=== PATIENT | male | born 1960 | race Caucasian/White ===

== ENCOUNTER → 2022-12-26 12:40 | Outpatient (BNVA) | payer BC, SELFPAY | PROVIDERS: PCP Internal Medicine; Visit Provider Internal Medicine Cardiovascular Disease ==

== ENCOUNTER → 2023-01-02 08:26 | Outpatient (REF) | payer BC, SELFPAY ==
--- NOTE | 2023-01-02 08:41 | CA_ITS ---
Transthoracic Echocardiogram Patient (Last, First, Middle): Xavier Clements, Gender: Male Date of : 1960 Age: 62 Procedure Date: 01/02/2023 Procedure Type: Transthoracic Echocardiogram Location: OP Height: 175.26 cm Weight: 122.47 kg BSA: 2.35 m2 Heart Rate: bpm BP: 130 / 80 mmHg Tube Room Supervisor: TO Referring MD: Zhou Boothe MD On Call: Zhou Boothe MD Symptoms: Z01.810 - Encounter for preprocedural cardiovascular examination Study Quality: Technically Difficult/Contrast ECG Rhythm: Sinus Conclusions: - 1. Technically limited study despite use of contrast agent 2. Normal LV systolic function with LVEF of 60 65% with impaired relaxation filling pattern 3. Limited visualization cardiac valve with normal cardiac valvular Doppler Findings Procedure Information Contrast agent, definity, is being given per protocol without apparent complications. Left Ventricle Normal left ventricular size, thickness, and systolic function. The visually estimated ejection fraction is between 60-65%. Spectral Doppler is indicative of an impaired relaxation filling pattern. Right Ventricle The right ventricle was not well visualized. Atria The left atrium was not well visualized. Interatrial shunt cannot be excluded. The right atrium was not well visualized. Aortic Valve The aortic valve structure and function is likely normal. There is no aortic valve stenosis. There is no aortic valve regurgitation. Mitral Valve The mitral valve was not well visualized. There is trace mitral valve regurgitation. There is no mitral valve stenosis. Pulmonic Valve The pulmonic valve was not well visualized. Tricuspid Valve The tricuspid valve was not well visualized. Tricuspid regurgitation envelope is inadequate for calculation of right ventricular systolic pressure. Great Vessels All visible segments of the aorta are normal in size. The pulmonary artery was not well visualized. Venous The inferior vena cava is normal in size. Pericardium/Pleural The pericardium was not well visualized. Prior Study Comparison No prior study available for comparison. Measurements 2D Linear Measurements IVSd: 1.26 0.6-0.9/0.6-1.0 cm LVIDd: 3.94 3.9-5.3/4.2-5.9 cm LVIDd Index: 1.68 2.4-3.2/2.2-3.1 cm/m2 LVIDs: 2.80 2.0-3.6 cm LVPWd: 1.03 0.7-1.1 cm LA Diam: 3.40 2.7-3.8/3.0-4.0 cm LAIDs Index: 1.45 1.5-2.3 cm/m2 LV Mass: 187.87 67-162/88-224 g LV Mass Index: 79.94 43-95/49-115 g/m2 LVOT Diam: 2.20 3.0+(-)1.3 cm 2D Systolic Function EF 4C: 55.60 >55% Mitral Valve MV Pk E: 0.57 MV PK A: 0.90 MV Decel Time: 182.00 E/A: 0.60 E'Lateral: 7.07 E'Medial: 6.31 E/E' Med: 9.00 E/E' Lat: 8.00 PHT: 53.00 MVA PHT: 4.15 Decel [place]: 3.10 Aortic Valve AoV Pk Nestor: 1.09 AoV Mn Nestor: 0.75 AoV VTI: 0.19 AoV Pk Grad: 5.00 Aov Mn Grad: 3.00 CRISTOFER Cont.VTI: 4.10 LVOT LVOT Pk Nestor: 1.22 LVOT Mn Nestor: 0.76 LVOT VTI: 0.20 LVOT Pk Grad: 6.00 LVOT Mn Grad: 3.00 LVOT Diam: 2.20 LVOT Area: 3.80 Diastolic Function MV Pk E: 0.57 MV Pk A: 0.90 E/A: 0.60 E'Medial: 6.31 E/E' Med: 9.00 E' Laterial: 7.07 E/E' Lat: 8.00 Right Ventricle TAPSE (mm): 25.90 TVS' Nestor: 12.50 Tricuspid Valve TR Pk Nestor: 1.81 TR Pk Grad: 13.00 Great Vessels Aorta Sinus of Valsalva: 3.47 2.0-3.[address] [place]: 2.74 1.7-3.4 cm Ao Asc: 3.20 2.1-3.4 cm Updated in Other Vendor System with Status of Final Zhou Boothe MD electronically signed on 01/02/2023 12:57:15 PM with status of Final
== END ==
LOC: HO.CARD 08:26
PROVIDERS: PCP Internal Medicine; Visit Provider Internal Medicine Cardiovascular Disease
DX: Z01.810 Encounter for preprocedural cardiovascular examination (principal)
CPT/HCPCS: 93306; Q9957